=== PATIENT | female | born 2005 | race African-American/Black ===

== ENCOUNTER 2025-01-15 20:23 | Emergency (ER) | payer MEDICAID ==
[~2025-01-15] VITALS: Ht 167.6 cm; Wt 50.0 kg
[2025-01-15 20:33] VITALS: O2SAT 99
[2025-01-15] MEDS ORDERED: BO1 TP (20:49)
[2025-01-15] MEDS: BACITRACIN ZINC OINT UDPKT TOP ONE (21:03)
[2025-01-15] MEDS: IBUPROFEN 400MG TABLET PO ONE (21:03)
[2025-01-15 21:18] VITALS: BP 125/64; PULSE 89; RESP 15; TEMP 36.8; O2SAT 99
== END 2025-01-15 21:20 | disposition home or self-care (01) ==
LOC: ER 20:23
DX: S40.812A Abrasion of left upper arm, initial encounter (principal); Z79.899 Other long term (current) drug therapy; W22.8XXA Striking against or struck by other objects, initial encounter; Y93.89 Activity, other specified; Y92.89 Other specified places as the place of occurrence of the external cause; Y99.8 Other external cause status
CPT/HCPCS: 99283